=== PATIENT | male | born 1985 | race Caucasian/White ===

== ENCOUNTER 2017-09-10 05:03 | Emergency (ER) | payer OTHER, SELFPAY ==
[2017-09-10 05:04] VITALS: BP 162/86; PULSE 79; RESP 18; TEMP 36.7; O2SAT 97; BMI 29.7
--- NOTE | 2017-09-10 05:46 | ED.DCSUM_ITS ---
- ER Visit Summary Date of Service: 09/10/17 Chief Complaint: Anxiety History of Present Illness: The patient is a 31 M who presents with an anxiety attack. 2 hours ago he woke and felt like his heart was racing he felt anxious and nauseated. He is under multiple stressors. He has . He is also very busy with work currently. He states he has had prior episodes where he has had anxiety and panic attacks after a stressful event which usually that improves after a couple of months. Physical Examination: Afebrile vitals are stable Moist mucous membranes Heart regular rate and rhythm Lungs are clear Abdomen soft Alert Test Results: Not indicated Emergency Department Course and Treatment: Patient presents with anxiety. He was given a prescription for Vistaril. He was discharged. Treatment Plan: [] Disposition: Discharge Impression: Anxiety This note was generated with [employer] dictation software. It may contain incorrect words, spelling, and punctuation that were not noted in review of the chart prior to signing ED Disposition - Plan for ED Patient: Chief Complaint: Anxiety Referrals: Kevin Tolbert [Primary Care Provider] -
--- NOTE | 2017-09-10 05:46 | ED.DEP ---
ED Disposition - Plan for ED Patient: Chief Complaint: Anxiety Instructions: ED Panic Attack Prescriptions: hydrOXYzine pamoate capsule [Vistaril] 25 mg PO TID PRN PRN #20 cap PRN Reason: Anxiety Referrals: Kevin Tolbert [Primary Care Provider] -
[2017-09-10 06:01] VITALS: PULSE 86; RESP 16; O2SAT 98
== END 2017-09-10 06:04 | disposition home or self-care (01) ==
LOC: ED 05:55
PROVIDERS: Emergency Provider Emergency Medicine; Family Provider Family Medicine; PCP Family Medicine
DX: F41.9 Anxiety disorder, unspecified (principal)
CPT/HCPCS: 99282